=== PATIENT | male | born 1970 | race Caucasian/White ===

== ENCOUNTER 2024-12-13 15:13 | Emergency (ER) | payer SELFPAY ==
[2024-12-13 15:17] VITALS: BP 183/99; PULSE 75; TEMP 36.7; O2SAT 98; BMI 24.4
--- NOTE | 2024-12-13 15:32 | CT_ITS ---
The [address] [address] Patient Name: TEAGAN MORA MRN: [id number] date: 1970 Sex: M Assigned Patient Location: ER Current Patient Location: [facility] Accession/Order Number: [id number] Exam Date: 12/13/2024 16:28 Report Date: 12/13/2024 16:33 At the request of: KENIA OWENS MD Procedure: CT abdomen pelvis w con CT ABDOMEN AND PELVIS WITH INTRAVENOUS CONTRAST: CLINICAL HISTORY: Left lower quadrant pain, rule out diverticulitis COMPARISON: None TECHNIQUE: Spiral images were obtained through the abdomen and pelvis following the administration of intravenous contrast. This CT exam was performed using one or more following dose reduction techniques: Automated exposure control, adjustment of the mA and/or kV according to patient size, or use of iterative reconstruction technique. FINDINGS: Lung Bases: [Calcified granulomas right lower lobe. No acute findings.] Organs:Splenic granulomas. Subcentimeter low-attenuation lesions are seen within the liver too small for characterization. Gallbladder portal vein pancreas and adrenal glands all appear unremarkable. Punctate right nephrolithiasis with small cysts noted involving the right kidney. Punctate stone left kidney. 3 mm obstructing calculus left UVJ with associated hydronephrosis, hydroureter and delayed enhancement of the left kidney. Aorta appears normal in caliber. GI: Stomach is grossly unremarkable. Small bowel appears nondilated. Appendix is normal. No acute colonic abnormality.[ Pelvis:[Urinary bladder and prostate gland appear unremarkable. Left-sided fat filled inguinal hernia.] Peritoneum/Retroperitoneum:No free air free fluid or lymphadenopathy.[ Abd wall/Bones:No acute findings. Osseous structures didn't show degenerative change.[ CT/CT abdomen pelvis w con IMPRESSION: Bilateral nephrolithiasis with 3 mm obstructing calculus left UVJ. Impression dictated by: Koby Whittaker Jr. DGermanOGerman 12/13/2024 4:33 PM Dictation Location: [place] [address] Electronically authenticated by: [id number] Y Date: 12/13/2024 16:33
--- NOTE | 2024-12-13 15:33 | ED.GENADUL1 ---
HPI HPI - General Adult General Chief complaint: Abdominal Pain Stated complaint: LOWER LEFT SIDE PAIN Time Seen by Provider: 12/13/24 15:18 Source: patient Mode of arrival: walk-in History of Present Illness HPI narrative: 53-year-old male presents to the emergency department for abdominal pain. It is in his left lower quadrant and he has had this since 4:00 in the morning. It has been there continuously and he had a bowel movement last night. No trauma or fever or blood in his stool. No dysuria or right-sided abdominal pain. He has never had diverticulitis. Related Data Previous Rx's ?Medication ?Instructions ?Recorded acetaminophen 300 mg-codeine 30 mg 1 tab PO Q6H PRN pain 5 days #20 12/13/24 tablet tabs ondansetron 4 mg disintegrating 4 mg PO Q6H PRN nausea and 12/13/24 tablet vomiting #20 tabs tamsulosin 0.4 mg capsule (Flomax) 0.4 mg PO DAILY #7 caps 12/13/24 Allergies Allergy/AdvReac Type Severity Reaction Status Date / Time No Known Drug Allergies Allergy Verified 12/13/24 15:21 Opioid HPI Opioid Management Most Recent Opioid Data: Last Pain Scale 7 Today, 16:19 Last MAR Pain Assessment Today, 16:19 Review of Systems ROS Narrative A ten point review of systems is negative except as noted above. PFSH PFSH Social History Little interest or pleasure in doing things: not at all Feeling down, depressed, or hopeless: not at all Exam Narrative Exam Narrative: Nurses note and vital signs reviewed and patient is not hypoxic. General: The patient appears well and in no apparent distress. Patient is resting comfortably on cart. Skin: Warm, dry, no pallor noted. There is no rash noted. Head: Normocephalic, atraumatic Eye: Normal conjunctiva, no drainage Ears, Nose, Mouth, and Throat: oral mucosa is moist. Nares patent. Cardiovascular: Regular Rate and Rhythm Respiratory: Patient is in no distress, no accessory muscle use, lungs are clear to auscultation, no wheezing, rales or rhonchi Back: non-tender GI: Soft and nondistended. Minimal tenderness in the left lower quadrant without mass. Musculoskeletal: The patient has no evidence of calf tenderness, no pitting edema, symmetrical pulses noted bilaterally Neurological: A&O, normal speech Psychiatric: Cooperative Constitutional Vital Signs, click to edit/add: Last Vital Signs Temp 98.0 F 12/13/24 15:17 Pulse 75 12/13/24 15:17 Resp 18 12/13/24 15:17 BP 183/99 H 12/13/24 15:17 Pulse Ox 98 12/13/24 15:17 O2 Del Method Room Air 12/13/24 15:17 Course Vital Signs Vital signs: Vital Signs Temperature 98.0 F 12/13/24 15:17 Pulse Rate 75 12/13/24 15:17 Respiratory Rate 18 12/13/24 15:17 Blood Pressure 183/99 H 12/13/24 15:17 Pulse Oximetry 98 12/13/24 15:17 Oxygen Delivery Method Room Air 12/13/24 15:17 Temperature 98.0 F 12/13/24 15:17 Pulse Rate 75 12/13/24 15:17 Respiratory Rate 18 12/13/24 15:17 Blood Pressure 183/99 H 12/13/24 15:17 Pulse Oximetry 98 12/13/24 15:17 Oxygen Delivery Method Room Air 12/13/24 15:17 Medical Decision Making MDM Narrative Medical decision making narrative: 3 mm stone at the left UV junction is identified. Findings are discussed with the patient and he is discharged home on Flomax and Tylenol 3 and Zofran. Follow-up with urology. He was provided urine strainer and a specimen cup. Treatment diagnosis and follow-up were discussed with the patient and his . Differential Diagnosis Differential Diagnosis: Constipation, diverticulitis, kidney stone Lab Data Lab results reviewed: Yes I reviewed the patient's lab results Labs: Lab Results 12/13/24 12/13/24 Range/Units 15:25 15:30 WBC 18.4 H (4.0-11.0) 10^3/uL RBC 5.22 (4.70-6.10) 10^6/uL Hgb 15.9 (14.0-18.0) g/dL Hct 46.1 (42.0-54.0) % MCV 88.3 (80.0-94.0) fL MCH 30.5 (25.9-34.0) pg MCHC 34.5 (29.9-35.2) g/dL RDW 12.3 (11.0-15.0) % Plt Count 212 (150-450) 10^3/uL MPV 10.5 (9.5-13.5) fL Neut % (Auto) 88.0 H (43.0-75.0) % Lymph % (Auto) 7.0 L (20.5-60.0) % [place] % (Auto) 4.5 (1.7-12.0) % Eos % (Auto) 0.0 L (0.9-7.0) % Baso % (Auto) 0.1 L (0.2-2.0) % Neut # (Auto) 16.2 H (1.4-6.5) 10^3/uL Lymph # (Auto) 1.3 (1.2-3.8) 10^3/uL [place] # (Auto) 0.8 (0.3-0.8) 10^3/uL Eos # (Auto) 0.0 (0.0-0.7) 10^3/uL Baso # (Auto) 0.0 (0.0-0.1) 10^3/uL Abs Immat Gran (auto) 0.08 H (0.00-0.03) 10^3/uL Imm/Tot Granulo (auto) 0.4 (0.0-0.5) % Sodium 140 (136-145) mmol/L Potassium 4.1 (3.5-5.1) mmol/L Chloride 102 (98-107) mmol/L Carbon Dioxide 23.2 (21.0-32.0) mmol/L Anion Gap 18.9 BUN 21.0 H (7.0-18.0) mg/dL Creatinine 1.62 H (0.70-1.30) mg/dL Est GFR ( Amer) 55 L (>=60 mL/min/1.73m^2) Est GFR (Non-Af Amer) 45 L (>=60 mL/min/1.73m^2) BUN/Creatinine Ratio 13.0 Glucose 117 H (74-106) mg/dL Calcium 9.4 (8.5-10.1) mg/dL Urine Color Lt. yellow (YELLOW) Urine Clarity Clear (CLEAR) Urine pH 6.0 (5.0-9.0) Ur Specific [place] >=1.030 A (1.005-1.025) Urine Protein Trace (NEG/TRACE) mg/dL Urine Glucose (UA) Negative (NEGATIVE) mg/dL Urine Ketones >=80 A (NEGATIVE) mg/dL Urine Occult Blood Moderate A (NEGATIVE) Urine Nitrite Negative (NEGATIVE) Urine Bilirubin Negative (NEGATIVE) Urine Urobilinogen 0.2 (0.2-1.0) EU/dL Ur Leukocyte Esterase Negative (NEGATIVE) Urine RBC 10-20 A (0-2) #/HPF Urine WBC None seen (NONE SEEN) #/HPF Ur Squamous Epith Cells Few A (NONE/RARE) #/LPF Urine Crystals None seen (None Seen) #/HPF Urine Bacteria Trace A (NONE SEEN) #/HPF Urine Casts None seen (NONE SEEN) #/LPF Urine Mucus Trace A (NONE SEEN) Ur Culture Indicated? No Imaging Data CT scan - abdomen: Radiologist's impression: ITS Impressions Abdomen/Pelvis CT 12/13/24 15:32 IMPRESSION: Bilateral nephrolithiasis with 3 mm obstructing calculus left UVJ. Impression dictated by: Koby Whittaker Jr., D.O. 12/13/2024 4:33 PM Dictation Location: [employer] Electronically authenticated by: [id number] Y Date: 12/13/2024 16:33 Discharge Plan Discharge Chief Complaint: Abdominal Pain Clinical Impression: Kidney stone Patient Disposition: Home, Self-Care Time of Disposition Decision: 16:50 Condition: Good Mode of Transportation: Private Vehicle Prescriptions / Home Meds: New acetaminophen-codeine 300-30 mg tablet 1 tab PO Q6H PRN (Reason: pain) 5 Days Qty: 20 0RF tamsulosin [Flomax] 0.4 mg capsule 0.4 mg PO DAILY Qty: 7 0RF ondansetron 4 mg tablet,disintegrating 4 mg PO Q6H PRN (Reason: nausea and vomiting) Qty: 20 0RF Print Language: Macedonian Instructions: Kidney Stones (ED), How to Strain Your Urine (ED) Referrals: Physician,Non-Staff, MD [Primary Care Provider] - 1 week Aldo Titus MD [Physician, Urology] - 1 week
[2024-12-13 15:42] LABS: Hematocrit 46.1 % (42.0-54.0); Hemoglobin 15.9 g/dL (14.0-18.0); Immature Granulocytes Abs Auto 0.08 10^3/uL (0.00-0.03); Immature Granulocytes Pct Auto 0.4 % (0.0-0.5); Lymphocytes Absolute Auto 1.3 10^3/uL (1.2-3.8); Mean Corpuscular HGB Conc 34.5 g/dL (29.9-35.2); Mean Corpuscular Hemoglobin 30.5 pg (25.9-34.0); Mean Corpuscular Volume 88.3 fL (80.0-94.0); Platelet Count 212 10^3/uL (150-450); Red Blood Count 5.22 10^6/uL (4.70-6.10); White Blood Count 18.4 10^3/uL (4.0-11.0)
[2024-12-13 15:43] LABS: Glucose Urine UA NEGATIVE (NEGATIVE)
[2024-12-13 15:49] LABS: Cast Seen? NONE SEEN #/LPF (NONE SEEN); Crystals Seen? None Seen #/HPF (None Seen)
[2024-12-13 15:50] LABS: Urine Culture Indicated NO
[2024-12-13 15:51] LABS: Anion Gap 18.9; Blood Urea Nitrogen 21.0 mg/dL (7.0-18.0); Calcium 9.4 mg/dL (8.5-10.1); Carbon Dioxide 23.2 mmol/L (21.0-32.0); Chloride 102 mmol/L (98-107); Estimated GFR (African America 55 (>=60 mL/min/1.73m^2); Estimated GFR (Non-African Ame 45 (>=60 mL/min/1.73m^2); Glucose 117 mg/dL (74-106); Potassium 4.1 mmol/L (3.5-5.1); Sodium 140 mmol/L (136-145)
[2024-12-13] MEDS: MORPHINE SULFATE 4 MG/ML VIAL IV (16:19)
== END 2024-12-13 17:08 | disposition home or self-care (01) ==
PROVIDERS: Emergency Provider Emergency Medicine
DX: N20.0 Calculus of kidney (principal)
CPT/HCPCS: 36415; 74177; 80048; 81001; 85025; 96374; 99285; J2270; Q9967